=== PATIENT | male | born 1940 | race Caucasian/White ===

== ENCOUNTER 2016-08-28 20:49 | Inpatient (IN) | payer MEDICARE, MEDICAID ==
[~2016-08-28] VITALS: Ht 165.1 cm; Wt 53.5 kg
[2016-08-28] MEDS ORDERED: IV NS 0.9% 1,000 ML BAG IV ONE (21:00)
[2016-08-28] MEDS ORDERED: ACETAMINOPHEN ES 500 MG TABLET ONE (21:02)
[2016-08-28] MEDS ORDERED: IV SET PRIMARY 1 EA INFUS.SET MC ONE (21:02)
[2016-08-28] MEDS ORDERED: IV NS 0.9% 2,000 ML ONE (21:02)
[2016-08-28 21:15] LABS: BASOPHILS # (AUTO) 0.3 /CMM (0.0-0.2); DIFF TOTAL % 100 %; HEMATOCRIT 47 % (39-51); LYMPHOCYTES % (AUTO) 3.7 % (20.0-44.0); MEAN CORPUSCULAR HEMOGLOBIN 29 PG (26.0-33.0); MEAN CORPUSCULAR HGB CONC 34 g/dl (31.0-36.0); MEAN CORPUSCULAR VOLUME 86 fL (80-96); MONOCYTES # (AUTO) 1.6 /CMM (0.1-1.30); MONOCYTES % (AUTO) 5.9 % (2.0-12.0); NEUTROPHILS # (AUTO) 23.7 /CMM (1.8-8.9); NEUTROPHILS % (AUTO) 89.4 % (43.0-81.0); PLATELET COUNT (AUTO) 221 /CMM (150-450); RED BLOOD CELL COUNT(AUTO) 5.44 MIL/uL (4.5-6.0); WHITE BLOOD COUNT (AUTO) 26.6 K/uL (4.3-11.0)
[2016-08-28 21:27] LABS: ANION GAP 13 (5-14); CALCIUM, SERUM 8.9 mg/dL (8.5-10.1); CARBON DIOXIDE 26 mmol/L (21-32); CHLORIDE 99 mmol/L (98-107); CREATININE 0.9 mg/dL (0.6-1.3); GLUCOSE 113 mg/dL (74-106); POTASSIUM 4.1 mmol/L (3.5-5.1); SODIUM SERUM 134 mmol/L (136-145); UREA NITROGEN, BLOOD 19 mg/dL (7-18)
[2016-08-28] MEDS ORDERED: VANCOMYCIN 1 GM in IV D5W 250 ML IV ONE (21:30)
[2016-08-28] MEDS ORDERED: ACETAMINOPHEN ES 500 MG TABLET PO ONE (21:30)
[2016-08-28 21:31] LABS: INR 0.98 (0.87-1.13); PROTHROMBIN TIME 10.3 SECS (9.5-12.7)
[2016-08-28 21:35] LABS: TROPONIN I < 0.017 ng/mL (0.00-0.056)
[2016-08-28] MEDS ORDERED: VANCOMYCIN 1 GM VIAL ONE (21:37)
[2016-08-28] MEDS ORDERED: PIPERACILLIN /TAZOBACTAM 3.375 G VIAL IV ONE (21:37)
[2016-08-28] MEDS ORDERED: IV SET PRIMARY PUMP SET 1 EA INFUS.SET MC ONE (21:38)
[2016-08-28] MEDS ORDERED: IV D5W 50 ML IV ONE (21:38)
[2016-08-28] MEDS ORDERED: IV D5W 250 ML IV ONE (21:38)
[2016-08-28 21:39] LABS: ALANINE AMINOTRANSFERASE 49 U/L (12-78); ALBUMIN 2.8 g/dL (3.4-5.0); ASPARTATE AMINOTRANSFERASE 23 U/L (15-37); BILIRUBIN,DIRECT 0.3 mg/dL (0.0-0.2); BILIRUBIN,TOTAL 1.1 mg/dL (0.2-1.0); INDIRECT BILIRUBIN 0.8 mg/dL (0.0-1.1); TOTAL PROTEIN, SERUM 7.3 g/dL (6.4-8.2)
[2016-08-28] MEDS ORDERED: AMIO200T2 PO (22:03)
[2016-08-28] MEDS ORDERED: NA P133E RC (22:03)
[2016-08-28] MEDS ORDERED: TEMA15CA5 PO (22:03)
[2016-08-28] MEDS ORDERED: IPRA0.2S49 NEB (22:03)
[2016-08-28] MEDS ORDERED: HYDR-552 PO (22:03)
[2016-08-28] MEDS ORDERED: ALBU18HF2 INH (22:03)
[2016-08-28] MEDS ORDERED: DIGO125T PO (22:03)
[2016-08-28] MEDS ORDERED: MAGN400O4 PO (22:03)
[2016-08-28] MEDS ORDERED: FLUT1DIS3 INH (22:03)
[2016-08-28] MEDS ORDERED: CRAN450T3 PO (22:03)
[2016-08-28] MEDS ORDERED: BISA10SU61 RC (22:03)
[2016-08-28] MEDS ORDERED: DOCU-25 PO (22:03)
[2016-08-28] MEDS: PIPERACILLIN /TAZOBACTAM 3.375 G in IV D5W 50 ML IV ONE ×2 (22:09→22:25)
[2016-08-28 22:48] LABS: KETONES,URINE 2+ (NEGATIVE); LEUKOCYTE ESTERASE ,URINE NEGATIVE (NEGATIVE)
[2016-08-28 22:53] LABS: ADD UA MICROSCOPIC YES
[2016-08-28 22:59] LABS: ADD URINE CULTURE NO; MUCUS,URINE Few /LPF (None Seen); RBC,URINE 0-2 /HPF (0-2); WBC,URINE 0-2 /HPF (0-3)
[2016-08-29] VITALS (7 sets, daily range): BP systolic 97–109; BP diastolic 48–60
[2016-08-29] MEDS ORDERED: IV NS 0.9% 1,000 ML BAG IV SCH (01:30)
[2016-08-29] MEDS ORDERED: IV SET PRIMARY PUMP SET 1 EA INFUS.SET MC ONE ×2 (02:34→10:25)
[2016-08-29] MEDS ORDERED: IV NS 0.9% 1,000 ML ONE (02:34)
[2016-08-29 08:01] LABS: BASOPHILS % (AUTO) 0.2 % (0.0-2.0); DIFF TOTAL % 100 %; EOSINOPHILS # (AUTO) 0.1 /CMM (0.0-0.7); EOSINOPHILS % (AUTO) 0.3 % (0.0-6.0); HEMATOCRIT 42 % (39-51); HEMOGLOBIN 13.7 g/dL (13.5-17.5); LYMPHOCYTES # (AUTO) 0.5 /CMM (0.8-4.8); LYMPHOCYTES % (AUTO) 2.6 % (20.0-44.0); MEAN CORPUSCULAR HEMOGLOBIN 29 PG (26.0-33.0); MEAN CORPUSCULAR HGB CONC 33 g/dl (31.0-36.0); MEAN CORPUSCULAR VOLUME 88 fL (80-96); MONOCYTES # (AUTO) 1.3 /CMM (0.1-1.30); MONOCYTES % (AUTO) 6.5 % (2.0-12.0); NEUTROPHILS # (AUTO) 18.8 /CMM (1.8-8.9); NEUTROPHILS % (AUTO) 90.4 % (43.0-81.0); PLATELET COUNT (AUTO) 214 /CMM (150-450); RED BLOOD CELL COUNT(AUTO) 4.76 MIL/uL (4.5-6.0); WHITE BLOOD COUNT (AUTO) 20.8 K/uL (4.3-11.0)
[2016-08-29] MEDS ORDERED: PROC-11 PO (08:01)
[2016-08-29] MEDS ORDERED: DOCU250C75 PO (08:01)
[2016-08-29] MEDS ORDERED: FLUT1BLS IH (08:01)
[2016-08-29] MEDS ORDERED: MAGN400O6 PO (08:01)
[2016-08-29] MEDS ORDERED: HYDR-3326 PO (08:01)
[2016-08-29] MEDS ORDERED: ALBUTEROL FS 2.5 MG/0.5 ML VIAL.NEB NEB PRN (08:30)
[2016-08-29 08:33] LABS: CALCIUM, SERUM 8.4 mg/dL (8.5-10.1); CREATININE 0.8 mg/dL (0.6-1.3); POTASSIUM 3.9 mmol/L (3.5-5.1)
[2016-08-29] MEDS ORDERED: FEE PK DOSING 1 MIN EA MC ONE (08:35)
[2016-08-29] MEDS: PANTOPRAZOLE 40 MG TABLET.DR PO SCH (08:41)
[2016-08-29] MEDS: ENOXAPARIN SODIUM 40 MG/0.4 ML DISP.SYRIN SQ SCH (08:42)
[2016-08-29] MEDS ORDERED: MAGNESIUM HYDROXIDE 30 ML UDC PO PRN (09:30)
[2016-08-29] MEDS ORDERED: BISACODYL SUPP (10 MG) 10 MG/SUPP.RECT SUPP.RECT RC PRN (09:30)
[2016-08-29] MEDS ORDERED: PROCHLORPERAZINE MALEATE 10 MG TABLET PO PRN (09:30)
[2016-08-29] MEDS ORDERED: HYDROCODONE/APAP 5/325MG 1 EACH TABLET PO PRN (09:30)
[2016-08-29] MEDS ORDERED: NA PHOS,M-B/NA PHOS,DI-BA 1 EA ENEMA RC PRN (09:30)
[2016-08-29 09:44] LABS: BAND % (MANUAL) 3 % (0.0-5.0); LYMPHOCYTES % (MANUAL) 3 % (16-48)
[2016-08-29 09:45] LABS: PLATELET ESTIMATE ADEQUATE
[2016-08-29] MEDS ORDERED: SECONDARY IV SET 1 EA INFUS.SET MC ONE ×2 (10:26→11:47)
[2016-08-29] MEDS: IPRATROPIUM NEB FS 0.5 MG/2.5 ML AMPUL.NEB NEB SCH ×5 (10:27→20:18)
[2016-08-29] MEDS: ALBUTEROL FS 2.5 MG/0.5 ML VIAL.NEB NEB SCH ×5 (10:27→20:18)
[2016-08-29] MEDS: AMIODARONE HCL 200 MG TABLET PO SCH (10:31)
[2016-08-29] MEDS: DOCUSATE SODIUM 250 MG CAPSULE PO SCH ×2 (10:31→17:06)
[2016-08-29] MEDS: VANCOMYCIN 0.75 GM in IV D5W 250 ML IV SCH ×2 (10:32→23:09)
[2016-08-29] MEDS: IV NS 0.9% 1,000 ML IV PRN (10:33)
[2016-08-29] MEDS: ACETAMINOPHEN 325 MG TABLET PO PRN (11:27)
[2016-08-29] MEDS: PIPERACILLIN /TAZOBACTAM 3.375 G in IV D5W 50 ML IV SCH ×2 (11:54→17:06)
[2016-08-29] MEDS ORDERED: Z GUARD REMEDY 2 OZ OINT TP PRN (13:00)
[2016-08-29] MEDS: DIGOXIN 0.125 MG TABLET PO SCH (13:13)
[2016-08-29] MEDS: ACETYLCYSTEINE 10% SOLN 400 MG/4 ML VIAL NEB SCH (15:35)
[2016-08-29] MEDS ORDERED: Medication Not On Formulary EA (Cranberry Extract (Cranberry) 450 MG) PO SCH (17:00)
[2016-08-29] MEDS: TEMAZEPAM 15 MG CAPSULE PO SCH (23:08)
[2016-08-30] MEDS: ACETYLCYSTEINE 10% SOLN 400 MG/4 ML VIAL NEB SCH ×3 (00:23→23:30)
[2016-08-30] MEDS: IPRATROPIUM NEB FS 0.5 MG/2.5 ML AMPUL.NEB NEB PRN (00:31)
[2016-08-30] MEDS: PIPERACILLIN /TAZOBACTAM 3.375 G in IV D5W 50 ML IV SCH ×4 (00:44→17:43)
[2016-08-30] MEDS: IV NS 0.9% 1,000 ML IV PRN ×2 (01:43→13:37)
[2016-08-30 08:00] VITALS: BP 123/72
[2016-08-30] MEDS: PANTOPRAZOLE 40 MG TABLET.DR PO SCH (08:19)
[2016-08-30] MEDS: AMIODARONE HCL 200 MG TABLET PO SCH (08:20)
[2016-08-30] MEDS: DOCUSATE SODIUM 250 MG CAPSULE PO SCH ×2 (08:20→16:51)
[2016-08-30] MEDS: ENOXAPARIN SODIUM 40 MG/0.4 ML DISP.SYRIN SQ SCH (08:21)
[2016-08-30] MEDS: IPRATROPIUM NEB FS 0.5 MG/2.5 ML AMPUL.NEB NEB SCH ×3 (08:32→19:25)
[2016-08-30] MEDS: ALBUTEROL FS 2.5 MG/0.5 ML VIAL.NEB NEB SCH (08:32)
[2016-08-30] MEDS ORDERED: HYDROCODONE/APAP 5/325MG 1 EACH TABLET PO SCH (09:00)
[2016-08-30] MEDS: VANCOMYCIN 0.75 GM in IV D5W 250 ML IV SCH ×2 (12:22→23:08)
[2016-08-30] MEDS: DIGOXIN 0.125 MG TABLET PO SCH (13:38)
[2016-08-30] MEDS: ALBUTEROL FS 2.5 MG/3 ML VIAL.NEB NEB SCH ×2 (13:58→19:25)
[2016-08-30 16:00] VITALS: BP 131/64
[2016-08-30] MEDS ORDERED: IOHEXOL-350 100 ML VIAL IV ONE (16:55)
[2016-08-30] MEDS ORDERED: IV NS 0.9% 250 ML IV ONE (16:55)
[2016-08-30] MEDS ORDERED: CT SWABBABLE VALVE TRANS SET 1 EA INFUS.SET MC ONE (16:55)
[2016-08-30 18:00] VITALS: BP 131/64
[2016-08-30 20:00] VITALS: BP 101/58
[2016-08-30] MEDS: ACETAMINOPHEN 325 MG TABLET PO PRN (22:05)
[2016-08-30] MEDS: TEMAZEPAM 15 MG CAPSULE PO SCH (23:08)
[2016-08-31] MEDS: PIPERACILLIN /TAZOBACTAM 3.375 G in IV D5W 50 ML IV SCH ×4 (00:17→18:46)
[2016-08-31] MEDS: IPRATROPIUM NEB FS 0.5 MG/2.5 ML AMPUL.NEB NEB SCH ×3 (07:17→19:56)
[2016-08-31] MEDS: ACETYLCYSTEINE 10% SOLN 400 MG/4 ML VIAL NEB SCH ×2 (07:17→14:30)
[2016-08-31] MEDS: ALBUTEROL FS 2.5 MG/3 ML VIAL.NEB NEB SCH ×3 (07:17→19:56)
[2016-08-31 07:20] LABS: BASOPHILS % (AUTO) 0.1 % (0.0-2.0); DIFF TOTAL % 100 %; EOSINOPHILS # (AUTO) 0.1 /CMM (0.0-0.7); EOSINOPHILS % (AUTO) 0.7 % (0.0-6.0); HEMATOCRIT 38 % (39-51); HEMOGLOBIN 12.5 g/dL (13.5-17.5); LYMPHOCYTES # (AUTO) 1.2 /CMM (0.8-4.8); LYMPHOCYTES % (AUTO) 6.7 % (20.0-44.0); MEAN CORPUSCULAR HEMOGLOBIN 29 PG (26.0-33.0); MEAN CORPUSCULAR HGB CONC 33 g/dl (31.0-36.0); MEAN CORPUSCULAR VOLUME 87 fL (80-96); MONOCYTES # (AUTO) 1.1 /CMM (0.1-1.30); MONOCYTES % (AUTO) 6.6 % (2.0-12.0); NEUTROPHILS % (AUTO) 85.9 % (43.0-81.0); PLATELET COUNT (AUTO) 224 /CMM (150-450); RED BLOOD CELL COUNT(AUTO) 4.36 MIL/uL (4.5-6.0); WHITE BLOOD COUNT (AUTO) 17.4 K/uL (4.3-11.0)
[2016-08-31 07:31] LABS: CALCIUM, SERUM 8.3 mg/dL (8.5-10.1); CREATININE 0.9 mg/dL (0.6-1.3)
[2016-08-31 07:39] LABS: POTASSIUM 2.4 mmol/L (3.5-5.1)
[2016-08-31 08:00] VITALS: BP 93/58
[2016-08-31] MEDS: DOCUSATE SODIUM 250 MG CAPSULE PO SCH ×2 (08:57→16:36)
[2016-08-31] MEDS: PANTOPRAZOLE 40 MG TABLET.DR PO SCH (08:58)
[2016-08-31] MEDS: AMIODARONE HCL 200 MG TABLET PO SCH (08:58)
[2016-08-31] MEDS: POTASSIUM CHLORIDE 20 MEQ TAB.PRT.SR PO SCH ×5 (08:59→13:11)
[2016-08-31] MEDS: ENOXAPARIN SODIUM 40 MG/0.4 ML DISP.SYRIN SQ SCH (09:00)
[2016-08-31] MEDS ORDERED: POTASSIUM CHLORIDE 20 MEQ TAB.PRT.SR PO ONE (10:00)
[2016-08-31] MEDS: VANCOMYCIN 0.75 GM in IV D5W 250 ML IV SCH (11:41)
[2016-08-31] MEDS: ACETAMINOPHEN 325 MG TABLET PO PRN (11:56)
[2016-08-31] MEDS: DIGOXIN 0.125 MG TABLET PO SCH (13:09)
[2016-08-31] MEDS: predniSONE 20 MG TABLET PO SCH (15:32)
[2016-08-31 16:00] VITALS: BP 80/50
[2016-08-31] MEDS: IV NS 0.9% 1,000 ML IV PRN (16:41)
[2016-08-31] MEDS: LACTOBACILLUS RHAMNOSUS GG 1 EACH CAP.SPRINK PO SCH (16:49)
[2016-08-31] MEDS: GUAIFENESIN 300 MG/15 ML UDC PO PRN (16:57)
[2016-08-31 18:50] VITALS: BP 80/50
[2016-08-31] MEDS ORDERED: IV NS 0.9% 250 ML IV ONE (19:30)
[2016-08-31 20:00] VITALS: BP 91/50
[2016-09-01] MEDS: TEMAZEPAM 15 MG CAPSULE PO SCH ×2 (00:18→22:15)
[2016-09-01] MEDS: VANCOMYCIN 0.75 GM in IV D5W 250 ML IV SCH ×3 (00:19→23:00)
[2016-09-01] MEDS: PIPERACILLIN /TAZOBACTAM 3.375 G in IV D5W 50 ML IV SCH ×4 (01:28→17:45)
[2016-09-01] MEDS: IPRATROPIUM NEB FS 0.5 MG/2.5 ML AMPUL.NEB NEB PRN (01:29)
[2016-09-01] MEDS: ALBUTEROL FS 2.5 MG/3 ML VIAL.NEB NEB PRN (01:29)
[2016-09-01] MEDS: ACETYLCYSTEINE 10% SOLN 400 MG/4 ML VIAL NEB SCH ×4 (01:29→23:30)
[2016-09-01 08:00] VITALS: BP 138/68
[2016-09-01 08:22] LABS: DIFF TOTAL % 100 %; HEMATOCRIT 35 % (39-51); HEMOGLOBIN 11.6 g/dL (13.5-17.5); LYMPHOCYTES # (AUTO) 0.8 /CMM (0.8-4.8); LYMPHOCYTES % (AUTO) 6.3 % (20.0-44.0); MEAN CORPUSCULAR HEMOGLOBIN 29 PG (26.0-33.0); MEAN CORPUSCULAR HGB CONC 33 g/dl (31.0-36.0); MEAN CORPUSCULAR VOLUME 87 fL (80-96); MONOCYTES # (AUTO) 0.6 /CMM (0.1-1.30); MONOCYTES % (AUTO) 4.8 % (2.0-12.0); NEUTROPHILS # (AUTO) 10.7 /CMM (1.8-8.9); NEUTROPHILS % (AUTO) 88.9 % (43.0-81.0); PLATELET COUNT (AUTO) 245 /CMM (150-450); RED BLOOD CELL COUNT(AUTO) 4.01 MIL/uL (4.5-6.0)
[2016-09-01 08:37] LABS: ALBUMIN 1.6 g/dL (3.4-5.0); BILIRUBIN,TOTAL 0.4 mg/dL (0.2-1.0); PHOSPHORUS 2.5 mg/dL (2.5-4.9); TOTAL PROTEIN, SERUM 5.5 g/dL (6.4-8.2)
[2016-09-01] MEDS: IPRATROPIUM NEB FS 0.5 MG/2.5 ML AMPUL.NEB NEB SCH ×3 (08:44→20:09)
[2016-09-01] MEDS: ALBUTEROL FS 2.5 MG/3 ML VIAL.NEB NEB SCH ×3 (08:45→20:10)
[2016-09-01] MEDS ORDERED: predniSONE 20 MG TABLET PO SCH (09:00)
[2016-09-01] MEDS: DOCUSATE SODIUM 250 MG CAPSULE PO SCH ×2 (09:00→17:00)
[2016-09-01] MEDS ORDERED: POTASSIUM CHLORIDE 20 MEQ TAB.PRT.SR PO ONE (10:00)
[2016-09-01] MEDS: LACTOBACILLUS RHAMNOSUS GG 1 EACH CAP.SPRINK PO SCH ×2 (10:48→17:01)
[2016-09-01] MEDS: PANTOPRAZOLE 40 MG TABLET.DR PO SCH (10:48)
[2016-09-01] MEDS: GUAIFENESIN 300 MG/15 ML UDC PO PRN (10:48)
[2016-09-01] MEDS: AMIODARONE HCL 200 MG TABLET PO SCH (10:49)
[2016-09-01] MEDS: predniSONE 20 MG TABLET PO SCH (10:50)
[2016-09-01] MEDS: ENOXAPARIN SODIUM 40 MG/0.4 ML DISP.SYRIN SQ SCH (10:50)
[2016-09-01] MEDS ORDERED: IV SET PRIMARY PUMP SET 1 EA INFUS.SET MC ONE (11:09)
[2016-09-01] MEDS: IV NS 0.9% 1,000 ML IV PRN (11:31)
[2016-09-01] MEDS: DIGOXIN 0.125 MG TABLET PO SCH (13:08)
[2016-09-01 16:00] VITALS: BP 92/45
[2016-09-01 20:00] VITALS: BP 111/60
[2016-09-01] MEDS ORDERED: MAG HYDROX/AL HYDROX/SIMETH 30 ML UDC ONE (22:07)
[2016-09-01] MEDS: MAG HYDROX/AL HYDROX/SIMETH 30 ML UDC PO PRN (22:15)
[2016-09-01] MEDS: ACETAMINOPHEN 325 MG TABLET PO PRN (23:27)
[2016-09-02] MEDS: PIPERACILLIN /TAZOBACTAM 3.375 G in IV D5W 50 ML IV SCH ×4 (00:03→17:10)
[2016-09-02] MEDS: IV NS 0.9% 1,000 ML IV PRN (05:25)
[2016-09-02 07:59] LABS: BASOPHILS # (AUTO) 0.1 /CMM (0.0-0.2); BASOPHILS % (AUTO) 0.9 % (0.0-2.0); DIFF TOTAL % 100 %; HEMATOCRIT 36 % (39-51); HEMOGLOBIN 11.7 g/dL (13.5-17.5); LYMPHOCYTES # (AUTO) 1.1 /CMM (0.8-4.8); MEAN CORPUSCULAR HEMOGLOBIN 29 PG (26.0-33.0); MEAN CORPUSCULAR HGB CONC 33 g/dl (31.0-36.0); MEAN CORPUSCULAR VOLUME 88 fL (80-96); MONOCYTES # (AUTO) 0.6 /CMM (0.1-1.30); NEUTROPHILS % (AUTO) 88.1 % (43.0-81.0); PLATELET COUNT (AUTO) 204 /CMM (150-450); RED BLOOD CELL COUNT(AUTO) 4.06 MIL/uL (4.5-6.0); WHITE BLOOD COUNT (AUTO) 15.9 K/uL (4.3-11.0)
[2016-09-02 08:00] VITALS: BP 119/59
[2016-09-02] MEDS: IPRATROPIUM NEB FS 0.5 MG/2.5 ML AMPUL.NEB NEB SCH ×3 (08:08→19:30)
[2016-09-02] MEDS: ACETYLCYSTEINE 10% SOLN 400 MG/4 ML VIAL NEB SCH ×3 (08:08→23:42)
[2016-09-02] MEDS: ALBUTEROL FS 2.5 MG/3 ML VIAL.NEB NEB SCH ×3 (08:08→19:30)
[2016-09-02] MEDS: DOCUSATE SODIUM 250 MG CAPSULE PO SCH ×2 (08:37→17:00)
[2016-09-02] MEDS: PANTOPRAZOLE 40 MG TABLET.DR PO SCH (08:38)
[2016-09-02] MEDS: predniSONE 20 MG TABLET PO SCH (08:38)
[2016-09-02] MEDS: LACTOBACILLUS RHAMNOSUS GG 1 EACH CAP.SPRINK PO SCH ×2 (08:38→17:05)
[2016-09-02] MEDS: AMIODARONE HCL 200 MG TABLET PO SCH (08:38)
[2016-09-02] MEDS: ENOXAPARIN SODIUM 40 MG/0.4 ML DISP.SYRIN SQ SCH (08:39)
[2016-09-02 08:42] LABS: BAND % (MANUAL) 3 % (0.0-5.0); LYMPHOCYTES % (MANUAL) 12 % (16-48); METAMYELOCYTES % 1 % (0-0); PLATELET ESTIMATE ADEQUATE
[2016-09-02 09:41] LABS: CALCIUM, SERUM 8.6 mg/dL (8.5-10.1); CREATININE 1.1 mg/dL (0.6-1.3); PHOSPHORUS 2.4 mg/dL (2.5-4.9); POTASSIUM 3.3 mmol/L (3.5-5.1)
[2016-09-02] MEDS: VANCOMYCIN 500 MG in IV D5W 100 ML IV SCH (12:11)
[2016-09-02] MEDS ORDERED: SECONDARY IV SET 1 EA INFUS.SET MC ONE (12:11)
[2016-09-02] MEDS: DIGOXIN 0.125 MG TABLET PO SCH (12:55)
[2016-09-02 16:00] VITALS: BP 114/65
[2016-09-02] MEDS ORDERED: K PHOS NEUTRAL 250 MG TABLET PO ONE (16:00)
[2016-09-02 20:00] VITALS: BP 141/74
[2016-09-02] MEDS: TEMAZEPAM 15 MG CAPSULE PO SCH (23:08)
[2016-09-02] MEDS: IPRATROPIUM NEB FS 0.5 MG/2.5 ML AMPUL.NEB NEB PRN (23:42)
[2016-09-02] MEDS: ALBUTEROL FS 2.5 MG/3 ML VIAL.NEB NEB PRN (23:42)
[2016-09-03] MEDS: VANCOMYCIN 500 MG in IV D5W 100 ML IV SCH ×2 (00:05→11:48)
[2016-09-03] MEDS: PIPERACILLIN /TAZOBACTAM 3.375 G in IV D5W 50 ML IV SCH ×4 (00:31→17:13)
[2016-09-03 03:20] VITALS: BP 141/74
[2016-09-03] MEDS: IV NS 0.9% 1,000 ML IV PRN (05:05)
[2016-09-03 07:44] LABS: CALCIUM, SERUM 7.1 mg/dL (8.5-10.1); CREATININE 0.9 mg/dL (0.6-1.3); PHOSPHORUS 3.5 mg/dL (2.5-4.9)
[2016-09-03 07:49] LABS: POTASSIUM 2.8 mmol/L (3.5-5.1)
[2016-09-03 08:00] VITALS: BP 104/62
[2016-09-03] MEDS: ALBUTEROL FS 2.5 MG/3 ML VIAL.NEB NEB SCH ×3 (08:16→19:46)
[2016-09-03] MEDS: ACETYLCYSTEINE 10% SOLN 400 MG/4 ML VIAL NEB SCH ×3 (08:17→23:40)
[2016-09-03] MEDS: IPRATROPIUM NEB FS 0.5 MG/2.5 ML AMPUL.NEB NEB SCH ×3 (08:17→19:46)
[2016-09-03] MEDS: AMIODARONE HCL 200 MG TABLET PO SCH (09:00)
[2016-09-03] MEDS: predniSONE 20 MG TABLET PO SCH (09:09)
[2016-09-03] MEDS: DOCUSATE SODIUM 250 MG CAPSULE PO SCH ×2 (09:09→17:13)
[2016-09-03] MEDS: PANTOPRAZOLE 40 MG TABLET.DR PO SCH (09:09)
[2016-09-03] MEDS: LACTOBACILLUS RHAMNOSUS GG 1 EACH CAP.SPRINK PO SCH ×2 (09:10→17:13)
[2016-09-03] MEDS: ENOXAPARIN SODIUM 40 MG/0.4 ML DISP.SYRIN SQ SCH (09:12)
[2016-09-03] MEDS ORDERED: POTASSIUM CHLORIDE 20 MEQ TAB.PRT.SR PO ONE (11:30)
[2016-09-03] MEDS ORDERED: SECONDARY IV SET 1 EA INFUS.SET MC ONE (11:41)
[2016-09-03] MEDS: DIGOXIN 0.125 MG TABLET PO SCH (13:02)
[2016-09-03 16:32] VITALS: BP 109/67
[2016-09-03] MEDS ORDERED: IV NS 0.9% 1,000 ML IV PRN ×2 (17:51→18:03)
[2016-09-03] MEDS ORDERED: IV D5/ 0.9% NACL 1,000 ML IV PRN (18:00)
[2016-09-03 20:00] VITALS: BP 112/67
[2016-09-03] MEDS: TEMAZEPAM 15 MG CAPSULE PO SCH (21:14)
[2016-09-04] MEDS: IV D5/ 0.9% NACL 1,000 ML IV PRN ×2 (00:57→22:00)
[2016-09-04] MEDS: methylPREDNISolone SOD SUCC 125 MG/2ML VIAL IV SCH ×3 (00:57→11:53)
[2016-09-04] MEDS: VANCOMYCIN 500 MG in IV D5W 100 ML IV SCH ×4 (00:57→23:09)
[2016-09-04] MEDS: PIPERACILLIN /TAZOBACTAM 3.375 G in IV D5W 50 ML IV SCH ×4 (01:51→17:29)
[2016-09-04] MEDS: PANTOPRAZOLE 40 MG TABLET.DR PO SCH (07:30)
[2016-09-04 07:52] LABS: DIFF TOTAL % 100 %; HEMATOCRIT 37 % (39-51); HEMOGLOBIN 12.2 g/dL (13.5-17.5); LYMPHOCYTES # (AUTO) 0.7 /CMM (0.8-4.8); LYMPHOCYTES % (AUTO) 4.1 % (20.0-44.0); MEAN CORPUSCULAR HEMOGLOBIN 29 PG (26.0-33.0); MEAN CORPUSCULAR HGB CONC 33 g/dl (31.0-36.0); MEAN CORPUSCULAR VOLUME 87 fL (80-96); MONOCYTES % (AUTO) 0.2 % (2.0-12.0); NEUTROPHILS # (AUTO) 16.4 /CMM (1.8-8.9); NEUTROPHILS % (AUTO) 95.7 % (43.0-81.0); PLATELET COUNT (AUTO) 349 /CMM (150-450); WHITE BLOOD COUNT (AUTO) 17.1 K/uL (4.3-11.0)
[2016-09-04 08:00] VITALS: BP 157/73
[2016-09-04 08:01] LABS: CALCIUM, SERUM 8.2 mg/dL (8.5-10.1); POTASSIUM 3.1 mmol/L (3.5-5.1)
[2016-09-04 08:03] LABS: INR 1.04 (0.87-1.13); PROTHROMBIN TIME 11.2 SECS (9.5-12.7)
[2016-09-04] MEDS: LACTOBACILLUS RHAMNOSUS GG 1 EACH CAP.SPRINK PO SCH ×2 (08:55→17:29)
[2016-09-04] MEDS: ENOXAPARIN SODIUM 40 MG/0.4 ML DISP.SYRIN SQ SCH (08:55)
[2016-09-04] MEDS: DOCUSATE SODIUM 250 MG CAPSULE PO SCH ×2 (08:55→17:00)
[2016-09-04] MEDS: IPRATROPIUM NEB FS 0.5 MG/2.5 ML AMPUL.NEB NEB SCH ×3 (09:22→19:39)
[2016-09-04] MEDS: AMIODARONE HCL 200 MG TABLET PO SCH (09:23)
[2016-09-04] MEDS: ALBUTEROL FS 2.5 MG/3 ML VIAL.NEB NEB SCH ×3 (09:24→19:39)
[2016-09-04] MEDS: ACETYLCYSTEINE 10% SOLN 400 MG/4 ML VIAL NEB SCH ×3 (09:26→23:32)
[2016-09-04] MEDS: MAG HYDROX/AL HYDROX/SIMETH 30 ML UDC PO PRN (10:35)
[2016-09-04] MEDS ORDERED: IV SET PRIMARY PUMP SET 1 EA INFUS.SET MC ONE (11:28)
[2016-09-04] MEDS: POTASSIUM CL. PREMIX PERIPHER. 50 ML IV SCH ×4 (11:54→17:09)
[2016-09-04] MEDS ORDERED: ROCURONIUM BROMIDE 50 MG/5 ML ONE (12:50)
[2016-09-04] MEDS: DIGOXIN 0.125 MG TABLET PO SCH (13:00)
[2016-09-04] MEDS ORDERED: ALBUTEROL FS 2.5 MG/3 ML VIAL.NEB ONE (13:28)
[2016-09-04] MEDS ORDERED: ANESTHESIA TRAY IN PYXIS 1 EA TRAY MC ONE (13:54)
[2016-09-04 16:00] VITALS: BP 92/51
[2016-09-04 20:00] VITALS: BP 113/64
[2016-09-04 20:11] VITALS: BP 113/64
[2016-09-04] MEDS: TEMAZEPAM 15 MG CAPSULE PO SCH (21:00)
[2016-09-05] MEDS: PIPERACILLIN /TAZOBACTAM 3.375 G in IV D5W 50 ML IV SCH ×4 (00:19→19:03)
[2016-09-05] MEDS: ACETYLCYSTEINE 10% SOLN 400 MG/4 ML VIAL NEB SCH ×3 (07:35→23:22)
[2016-09-05] MEDS: IPRATROPIUM NEB FS 0.5 MG/2.5 ML AMPUL.NEB NEB SCH ×4 (07:35→19:47)
[2016-09-05] MEDS: ALBUTEROL FS 2.5 MG/3 ML VIAL.NEB NEB SCH ×4 (07:35→19:47)
[2016-09-05 08:00] VITALS: BP 131/71
[2016-09-05] MEDS: DOCUSATE SODIUM 250 MG CAPSULE PO SCH ×2 (09:48→17:34)
[2016-09-05] MEDS: LACTOBACILLUS RHAMNOSUS GG 1 EACH CAP.SPRINK PO SCH ×2 (09:48→17:33)
[2016-09-05] MEDS: PANTOPRAZOLE 40 MG TABLET.DR PO SCH (09:48)
[2016-09-05] MEDS: AMIODARONE HCL 200 MG TABLET PO SCH (09:49)
[2016-09-05] MEDS ORDERED: VANCOMYCIN 1 GM in IV D5W 250 ML IV SCH (10:30)
[2016-09-05] MEDS: DIGOXIN 0.125 MG TABLET PO SCH (13:41)
[2016-09-05 15:56] LABS: CALCIUM, SERUM 7.9 mg/dL (8.5-10.1); CREATININE 0.9 mg/dL (0.6-1.3); POTASSIUM 3.4 mmol/L (3.5-5.1)
[2016-09-05] MEDS: IV D5/ 0.9% NACL 1,000 ML IV PRN (15:57)
[2016-09-05 16:00] VITALS: BP 110/56
[2016-09-05] MEDS ORDERED: VANCOMYCIN 500 MG in IV D5W 100 ML IV SCH (17:00)
[2016-09-05] MEDS ORDERED: SECONDARY IV SET 1 EA INFUS.SET MC ONE (17:37)
[2016-09-05 19:00] VITALS: BP 119/71
[2016-09-05 20:35] VITALS: BP 119/71
[2016-09-05] MEDS ORDERED: ENOXAPARIN SODIUM 40 MG/0.4 ML DISP.SYRIN SQ SCH (21:00)
[2016-09-05] MEDS: TEMAZEPAM 15 MG CAPSULE PO SCH (21:08)
[2016-09-06] MEDS: PIPERACILLIN /TAZOBACTAM 3.375 G in IV D5W 50 ML IV SCH ×3 (00:22→11:02)
[2016-09-06 07:51] LABS: DIFF TOTAL % 100 %; EOSINOPHILS # (AUTO) 0.3 /CMM (0.0-0.7); EOSINOPHILS % (AUTO) 1.2 % (0.0-6.0); HEMATOCRIT 39 % (39-51); HEMOGLOBIN 12.6 g/dL (13.5-17.5); LYMPHOCYTES # (AUTO) 1.6 /CMM (0.8-4.8); LYMPHOCYTES % (AUTO) 7.1 % (20.0-44.0); MEAN CORPUSCULAR HEMOGLOBIN 29 PG (26.0-33.0); MEAN CORPUSCULAR HGB CONC 33 g/dl (31.0-36.0); MEAN CORPUSCULAR VOLUME 89 fL (80-96); MONOCYTES # (AUTO) 0.1 /CMM (0.1-1.30); MONOCYTES % (AUTO) 0.3 % (2.0-12.0); NEUTROPHILS # (AUTO) 21.2 /CMM (1.8-8.9); NEUTROPHILS % (AUTO) 91.4 % (43.0-81.0); PLATELET COUNT (AUTO) 393 /CMM (150-450); RED BLOOD CELL COUNT(AUTO) 4.35 MIL/uL (4.5-6.0); WHITE BLOOD COUNT (AUTO) 23.2 K/uL (4.3-11.0)
[2016-09-06 08:00] VITALS: BP 110/68
[2016-09-06] MEDS: ALBUTEROL FS 2.5 MG/3 ML VIAL.NEB NEB SCH (08:00)
[2016-09-06] MEDS: ACETYLCYSTEINE 10% SOLN 400 MG/4 ML VIAL NEB SCH (08:00)
[2016-09-06 08:01] LABS: CALCIUM, SERUM 7.8 mg/dL (8.5-10.1); POTASSIUM 3.4 mmol/L (3.5-5.1)
[2016-09-06] MEDS: IPRATROPIUM NEB FS 0.5 MG/2.5 ML AMPUL.NEB NEB SCH (08:01)
[2016-09-06] MEDS: LACTOBACILLUS RHAMNOSUS GG 1 EACH CAP.SPRINK PO SCH (08:20)
[2016-09-06] MEDS: DOCUSATE SODIUM 250 MG CAPSULE PO SCH (08:20)
[2016-09-06] MEDS: PANTOPRAZOLE 40 MG TABLET.DR PO SCH (08:20)
[2016-09-06 08:23] VITALS: BP 109/68
[2016-09-06] MEDS: AMIODARONE HCL 200 MG TABLET PO SCH (08:23)
[2016-09-06] MEDS: IV D5/ 0.9% NACL 1,000 ML IV PRN (08:55)
[2016-09-06] MEDS ORDERED: VANCOMYCIN 0.75 GM in IV D5W 250 ML IV SCH (11:00)
[2016-09-06] MEDS ORDERED: POTASSIUM CHLORIDE 20 MEQ TAB.PRT.SR PO SCH (12:00)
[2016-09-06] MEDS: DIGOXIN 0.125 MG TABLET PO SCH (12:11)
== END 2016-09-06 14:25 | DRG 871 ==
LOC: ER 20:51 → TELE 22:36 → MED 08-29 10:43
PROVIDERS: ADMIT Legal Medicine; ATTEND Legal Medicine
PROC: 05H533Z Insertion of Infusion Device into Right Subclavian Vein, Percutaneous Approach (ICD-10-PCS; principal; 2016-08-30)
PROC: 0BJ08ZZ Inspection of Tracheobronchial Tree, Via Natural or Artificial Opening Endoscopic (ICD-10-PCS; 2016-09-04)
DX: A41.9 Sepsis, unspecified organism (principal); E43 Unspecified severe protein-calorie malnutrition; G93.41 Metabolic encephalopathy; J18.9 Pneumonia, unspecified organism; J96.21 Acute and chronic respiratory failure with hypoxia; J98.11 Atelectasis; J45.901 Unspecified asthma with (acute) exacerbation; J44.1 Chronic obstructive pulmonary disease with (acute) exacerbation; J44.0 Chronic obstructive pulmonary disease with (acute) lower respiratory infection; I69.354 Hemiplegia and hemiparesis following cerebral infarction affecting left non-dominant side; E11.22 Type 2 diabetes mellitus with diabetic chronic kidney disease; I12.9 Hypertensive chronic kidney disease with stage 1 through stage 4 chronic kidney disease, or unspecified chronic kidney disease; I48.91 Unspecified atrial fibrillation; N18.9 Chronic kidney disease, unspecified; Z86.73 Personal history of transient ischemic attack (TIA), and cerebral infarction without residual deficits; J44.9 Chronic obstructive pulmonary disease, unspecified; I48.2 Chronic atrial fibrillation; Z93.0 Tracheostomy status; E78.5 Hyperlipidemia, unspecified; E87.6 Hypokalemia; M41.9 Scoliosis, unspecified; M47.812 Spondylosis without myelopathy or radiculopathy, cervical region; M81.0 Age-related osteoporosis without current pathological fracture; Z87.891 Personal history of nicotine dependence
CPT/HCPCS: 36415; 70450-TC; 71010-TC; 80048-TC; 80053-TC; 80076-TC; 80162-TC; 80202-TC; 81000-TC; 82962-TC; 83605-TC; 83735-TC; 84100-TC; 84484-TC; 85025-TC; 85610-TC; 85730-TC; 87040-TC; 87070-TC; 87081-TC; 87400; 88305-TC; 88312-TC; 93307-TC; 94668-TC; 94799-TC; A4606; A6402; A6403; J1650; J2543; J2930; J3370; J3480; J7030; J7042; J7050; J7060; Q0164; Q9967; Z7610

== ENCOUNTER 2016-12-14 08:31 | Inpatient (IN) | payer MEDICARE, MEDICAID ==
[~2016-12-14] VITALS: Ht 162.6 cm; Wt 44.5 kg
[2016-12-14] VITALS: BP 94/55
[~2016-12-14 08:31] MED LIST: ALBU18HF2 INH; AMIO200T2 PO; BISA10SU61 RC; CRAN450T3 PO; DIGO125T PO; DOCU250C75 PO; FLUT1BLS IH; HYDR-3326 PO; HYDR-552 PO; IPRA0.2S49 NEB; MAGN400O6 PO; NA P133E RC; PROC-11 PO; TEMA15CA5 PO
--- NOTE | 2016-12-14 08:39 | NUR ---
KIARRA FROM [facility] DUE TO ALTERED MENTAL STATUS, PATIENT ARRIVED AWAKE, HOWEVER PATIENT APPEARS WEAK AND IN MILD DISTRESS. PATIENT IS ABLE TO FOLLOW SOMPLE COMMANDS,. DENIES PAIN OR DISCOMFORT. NO SOB NOTED,. SKIN IS WARM TO TOUCH AND NON DIAPHORETIC, AFEBRILE. VSS. GOWNED PT AND PLACED ON TELE MONITOR.
[2016-12-14] MEDS ORDERED: ALBU2.5V13 IH (08:52)
[2016-12-14] MEDS ORDERED: AMIN30LI4 PO (08:52)
[2016-12-14] MEDS ORDERED: PANT20TA2 PO (08:52)
[2016-12-14] MEDS ORDERED: IPRA0.2S9 IH (08:52)
[2016-12-14] MEDS ORDERED: PYRI100T6 PO (08:52)
[2016-12-14] MEDS ORDERED: TRAM50TA2 PO (08:52)
[2016-12-14] MEDS ORDERED: ACET-868 PO (08:52)
--- NOTE | 2016-12-14 08:53 | NUR ---
josef mcgee from [facility] for altered mental status upon finding patient in the morning, patient has low b/p, no resipratory distress, patient is responsive to verbally responsive, non verbal, patient denies chest pain, placed on monitor, md and rt at bedside upon arrival, no other medical complaints noted
--- NOTE | 2016-12-14 08:56 | NUR ---
URINE SAMPLE SENT TO LAB
--- NOTE | 2016-12-14 09:04 | NUR ---
pt to ct
[2016-12-14 09:12] LABS: APPEARANCE,URINE SL CLOUDY (CLEAR); BILIRUBIN,URINE NEGATIVE (NEGATIVE); BLOOD, URINE TRACE Ery/uL (NEGATIVE); COLOR,URINE YELLOW (YELLOW); KETONES,URINE NEGATIVE (NEGATIVE); LEUKOCYTE ESTERASE ,URINE NEGATIVE (NEGATIVE); NITRITE, URINE NEGATIVE (NEGATIVE); PROTEIN,URINE 2+ mg/dl (NEGATIVE); UGLUCOSE NEGATIVE (NEGATIVE); UROBILINOGEN,URINE 0.2 EU/dL (0.2)
[2016-12-14 09:14] LABS: BASOPHILS % (AUTO) 0.1 % (0.0-2.0); EOSINOPHILS # (AUTO) 0.5 /CMM (0.0-0.7); EOSINOPHILS % (AUTO) 2.7 % (0.0-6.0); HEMATOCRIT 44 % (39-51); HEMOGLOBIN 14.4 g/dL (13.5-17.5); LYMPHOCYTES # (AUTO) 1.2 /CMM (0.8-4.8); LYMPHOCYTES % (AUTO) 5.8 % (20.0-44.0); MEAN CORPUSCULAR HEMOGLOBIN 28 PG (26.0-33.0); MEAN CORPUSCULAR HGB CONC 33 g/dl (31.0-36.0); MEAN CORPUSCULAR VOLUME 86 fL (80-96); MONOCYTES # (AUTO) 0.9 /CMM (0.1-1.30); MONOCYTES % (AUTO) 4.2 % (2.0-12.0); NEUTROPHILS # (AUTO) 17.9 /CMM (1.8-8.9); NEUTROPHILS % (AUTO) 87.2 % (43.0-81.0); PLATELET COUNT (AUTO) 262 /CMM (150-450); RDW COEFFICIENT OF VARIATION 14.5 (11.5-15.0); RED BLOOD CELL COUNT(AUTO) 5.13 MIL/uL (4.5-6.0); WHITE BLOOD COUNT (AUTO) 20.5 K/uL (4.3-11.0)
[2016-12-14 09:22] LABS: SERUM AMMONIA 34 umol/L (11-32)
[2016-12-14 09:23] LABS: BACTERIA,URINE Rare /HPF (None Seen); SQUAMOUS EPITHELIAL CELL,UR Few /HPF (None Seen); WBC,URINE 0-2 /HPF (0-3)
[2016-12-14 09:24] LABS: CALCIUM, SERUM 8.7 mg/dL (8.5-10.1); CARBON DIOXIDE 29 mmol/L (21-32); CHLORIDE 103 mmol/L (98-107); CREATININE 0.9 mg/dL (0.6-1.3); GLUCOSE 163 mg/dL (74-106); POTASSIUM 4.5 mmol/L (3.5-5.1); SODIUM SERUM 138 mmol/L (136-145); UREA NITROGEN, BLOOD 17 mg/dL (7-18)
[2016-12-14 09:27] LABS: ALANINE AMINOTRANSFERASE 115 U/L (12-78); ALBUMIN 2.8 g/dL (3.4-5.0); ALKALINE PHOSPHATASE 120 U/L (46-116); ASPARTATE AMINOTRANSFERASE 164 U/L (15-37); BILIRUBIN,DIRECT 0.1 mg/dL (0.0-0.2); BILIRUBIN,TOTAL 0.5 mg/dL (0.2-1.0); TOTAL PROTEIN, SERUM 7.3 g/dL (6.4-8.2)
[2016-12-14 09:29] LABS: INR 1.05 (0.87-1.13); PROTHROMBIN TIME 11.3 SECS (9.5-12.7)
[2016-12-14 09:30] LABS: ACETAMINOPHEN 0 ug/ml (10-30)
[2016-12-14 09:59] LABS: THYROID STIMULATING HORMONE 1.748 uIU/mL (0.358-3.74)
[2016-12-14] MEDS ORDERED: VANCOMYCIN 1 GM in IV D5W 250 ML IV ONE (10:00)
[2016-12-14] MEDS ORDERED: MEROPENEM 1 G in IV NS 0.9% 100 ML IV ONE (10:00)
--- NOTE | 2016-12-14 10:03 | NUR ---
TELE/RN REPORT FROM ER RECEIVED REPORT FROM ER NURSE, CARRIE FOR PT TO BE ADMITTED FOR SEPSIS AND ALTERED MENTAL STATUS, UNDER THE CARE OF DR. CAMEJO. AWAITING FOR PT'S ARRIVAL.
[2016-12-14] MEDS ORDERED: IV SET PRIMARY PUMP SET 1 EA INFUS.SET MC ONE ×3 (10:04→10:37)
--- NOTE | 2016-12-14 10:09 | NUR ---
REPORT GIVEN TO GEE CINTRON FOR KATHERINE
[2016-12-14 10:30] VITALS: BP 76/53
--- NOTE | 2016-12-14 10:30 | NUR ---
TELE/JANITORIAL CLEANER TO TELE - 327#1 PT ARRIVED VIA GURNEY FROM ER ACCOMPANIED BY ER NURSE CARRIE. PT ALERT WITH NOTED CONFUSION. DENIES PAIN. NO ACUTE RESPIRATORY DISTRESS NOTED. ARRIVED WITH ON GOING IV INFUSION OF MERREM. IV SITES PATENT WITH NO S/S OF INFECTION. PLACED ON 2L O2 VIA N/C PT NOTED WITH WHEEZING AND RHONCHI LUNG SOUNDS THROUGHOUT. ON TELE WITH SINUS RHYTHM, WITH FIRST DEGREE BLOCK, HR 79. PT ADMITTED FOR SEPSIS AND ALTERED MENTAL STATUS UNDER THE CARE OF DR. CAMEJO. AWAITING FOR ADMITTING ORDERS. CL WITHIN REACHED AND SAFETY MAINTAINED.
[2016-12-14] MEDS ORDERED: IV NS 0.9% 250 ML IV ONE (10:37)
[2016-12-14] MEDS ORDERED: SECONDARY IV SET 1 EA INFUS.SET MC ONE ×2 (10:37→21:39)
[2016-12-14 10:45] VITALS: BP 76/53
[2016-12-14] MEDS ORDERED: FEE PK DOSING 1 MIN EA MC ONE (11:44)
[2016-12-14] MEDS ORDERED: MORPHINE SULFATE INJ 2 MG/ML DISP.SYRIN IV PRN (12:00)
[2016-12-14] MEDS ORDERED: ONDANSETRON HCL/PF 4 MG/2 ML VIAL IVP PRN (12:00)
[2016-12-14] MEDS ORDERED: ACETAMINOPHEN 325 MG TABLET PO PRN ×2 (12:00→12:30)
[2016-12-14] MEDS ORDERED: IPRATROPIUM NEB FS 0.5 MG/2.5 ML AMPUL.NEB ONE (12:24)
[2016-12-14] MEDS: IPRATROPIUM NEB FS 0.5 MG/2.5 ML AMPUL.NEB IH SCH ×4 (12:29→19:57)
[2016-12-14] MEDS: ALBUTEROL FS 2.5 MG/3 ML VIAL.NEB NEB SCH ×4 (12:29→19:57)
[2016-12-14] MEDS ORDERED: TRAMADOL HCL 50 MG TABLET PO PRN (12:30)
[2016-12-14] MEDS ORDERED: MAGNESIUM HYDROXIDE 30 ML UDC PO PRN (12:30)
[2016-12-14] MEDS ORDERED: PROCHLORPERAZINE MALEATE 10 MG TABLET PO PRN (12:30)
[2016-12-14] MEDS ORDERED: ALBUTEROL SULFATE 8 GM HFA.AER.AD IH PRN (12:30)
[2016-12-14] MEDS ORDERED: BISACODYL SUPP (10 MG) 10 MG/SUPP.RECT SUPP.RECT RC PRN (12:30)
[2016-12-14] MEDS ORDERED: NA PHOS,M-B/NA PHOS,DI-BA 1 EA ENEMA RC PRN (12:30)
[2016-12-14] MEDS: ZOSYN IVPB 3.375 G in IV D5W 50ml IV SCH ×2 (12:35→17:22)
[2016-12-14] MEDS: IV NS 0.9% 1,000 ML IV PRN (12:35)
[2016-12-14] MEDS: ENOXAPARIN SODIUM 30 MG/0.3 ML DISP.SYRIN SQ SCH (12:36)
[2016-12-14] MEDS: PROSOURCE / PROSTAT (PYXIS) 30 ML UDC PO SCH (12:37)
[2016-12-14] MEDS: PYRIDOXINE HCL 50 MG TABLET PO SCH (12:37)
[2016-12-14 16:00] VITALS: BP 71/47
[2016-12-14] MEDS ORDERED: Z GUARD REMEDY 2 OZ OINT TP PRN (16:00)
--- NOTE | 2016-12-14 17:56 | NUR ---
RT NOTE: RT CALLED TO PATIENT'S ROOM DUE TO PATIENT STATING HE IS CHOKING. UPON ARRIVAL PATIENT WAS PERSISTENTLY COUGHING AND IN SOME DISTRESS. HE IS SITTING UP ON 3LPM NASAL CANNULA SATURATING 96%. TREATMENT WAS GIVEN AND PATIENT'S COUGH SUBSIDED. RESPIRATIONS ARE NOW EVEN AND UNLABORED WITH INTERMITTENT COUGHING. PATIENT STATES HE FEELS BETTER. PATIENT HAS A SMALL OPEN STOMA THAT WAS CLEANED AND COVERED. NURSE AWARE. WILL CONTINUE TO MONITOR.
--- NOTE | 2016-12-14 19:30 | NUR ---
RN NOTES RECEIVED PT. AWAKE ON BED, A/OX3, SR WITH 1ST DEGREE AV BLOCK, HR-82, DENIES PAIN, NO SOB, CALL LIGHT WITHIN REACH, PUT PT ON COMFORTABLE, POSITION, SIDERAILS UPX2 CONTINUE TO MONITOR
--- NOTE | 2016-12-14 19:43 | NUR ---
TELE/RN AM SHIFT END NOTES NO ACUTE CHANGE OF CONDITION NOTED WITH PT SINCE HE WAS ADMITTED EARLIER THIS MORNING. NEEDS MET. PT ENDORSED TO PM NURSE TO CONTINUE CARE. ALSO ENDORSED PT FOR ASPIRATION PRECAUTION AND TO FOLLOW-UP WITH DR. CAMEJO REGARDING INCREASING IV FLUIDS TO 125CC/HR TO COMPLY WITH SEPSIS PROTOCOL, PT WAS NOTED WITH WHEEZING AND RHONCHI LUNG SOUNDS THROUGHOUT. CL WITHIN REACHED AND SAFETY MAINTAINED.
[2016-12-14 20:00] VITALS: BP 95/54
[2016-12-14] MEDS: VANCOMYCIN 0.75 GM in IV D5W 250 ML IV SCH (21:47)
[2016-12-14] MEDS: TEMAZEPAM 15 MG CAPSULE PO SCH (21:48)
[2016-12-15] VITALS (8 sets, daily range): BP systolic 94–128; BP diastolic 55–72
[2016-12-15] MEDS ORDERED: SECONDARY IV SET 1 EA INFUS.SET MC ONE (00:08)
[2016-12-15] MEDS: ZOSYN IVPB 3.375 G in IV D5W 50ml IV SCH ×5 (00:18→23:12)
[2016-12-15] MEDS: IPRATROPIUM NEB FS 0.5 MG/2.5 ML AMPUL.NEB IH SCH ×4 (02:15→21:29)
[2016-12-15] MEDS: ALBUTEROL FS 2.5 MG/3 ML VIAL.NEB NEB SCH ×4 (02:16→21:29)
[2016-12-15] MEDS: IPRATROPIUM NEB FS 0.5 MG/2.5 ML AMPUL.NEB IH PRN (05:45)
[2016-12-15] MEDS: ALBUTEROL FS 2.5 MG/3 ML VIAL.NEB NEB PRN (05:45)
[2016-12-15] MEDS: IV NS 0.9% 1,000 ML IV PRN (06:10)
--- NOTE | 2016-12-15 06:47 | NUR ---
RN NOTES SLEEPING BUT AROUSABLE, DENIES PAIN, NO SOB, MORNING CARE RENDERED, , PT. NEEDS ATTENDED
[2016-12-15 07:07] LABS: HEMOGLOBIN 13.9 g/dL (13.5-17.5); WHITE BLOOD COUNT (AUTO) 10.9 K/uL (4.3-11.0)
[2016-12-15 07:08] LABS: HEMATOCRIT 42 % (39-51); MEAN CORPUSCULAR HEMOGLOBIN 28 PG (26.0-33.0); MEAN CORPUSCULAR HGB CONC 33 g/dl (31.0-36.0); MEAN CORPUSCULAR VOLUME 86 fL (80-96); RDW COEFFICIENT OF VARIATION 14.4 (11.5-15.0)
[2016-12-15 07:09] LABS: BASOPHILS % (AUTO) 0.9 % (0.0-2.0); EOSINOPHILS # (AUTO) 0.6 /CMM (0.0-0.7); EOSINOPHILS % (AUTO) 5.6 % (0.0-6.0); LYMPHOCYTES # (AUTO) 1.6 /CMM (0.8-4.8); LYMPHOCYTES % (AUTO) 14.5 % (20.0-44.0); MONOCYTES # (AUTO) 0.9 /CMM (0.1-1.30); MONOCYTES % (AUTO) 8.6 % (2.0-12.0); NEUTROPHILS # (AUTO) 7.7 /CMM (1.8-8.9); NEUTROPHILS % (AUTO) 70.4 % (43.0-81.0)
[2016-12-15 07:10] LABS: BASOPHILS # (AUTO) 0.1 /CMM (0.0-0.2)
[2016-12-15] MEDS ORDERED: PANTOPRAZOLE 40 MG TABLET.DR PO SCH (07:30)
--- NOTE | 2016-12-15 07:30 | NUR ---
MUSEUM OR ZOO DIRECTOR AM NOTES PT IN BED, AAO X 2, CONFUSED AT TIMES, ON 3L O2 VIA NC. NOT IN ANY DISTRESS,NO SOB, RESPIRATION UNLABORED. STOMA SITE WITH CDI DRESSING, OCCASIONAL WHEEZING, TELEMETRY READS SR 1ST DEG AVB HR 75, DENIES CHEST PAIN, C/O BURNING SENSATION ON URINATION. REQUESTING FOR PERALES CATHETER, INFORMED HIM THAT WE WILL NOTIFY MD. NS AT 75 ML/HR INFUSING WELL TO RT AC 20G, SITE CLEAR, LEFT HAND 20 G, INFILTRATED, WILL REMOVE. 2 GM NA DIET, SEE NURSING FLOWSHEET FOR SKIN ISSUES, BED REST FOR NOW, WILL TURN AND REPOSITION, CALL LIGHT WITHIN REACH, BED LOW LOCKED, SR UP X2, WILL CONT TO MONITOR.
[2016-12-15 08:27] LABS: PLATELET COUNT (AUTO) 180 /CMM (150-450)
[2016-12-15] MEDS: HYDROCODONE/APAP 5/325MG 1 EACH TABLET PO SCH (08:45)
[2016-12-15] MEDS: PYRIDOXINE HCL 50 MG TABLET PO SCH (08:45)
[2016-12-15] MEDS: PROSOURCE / PROSTAT (PYXIS) 30 ML UDC PO SCH (08:45)
[2016-12-15] MEDS: ENOXAPARIN SODIUM 30 MG/0.3 ML DISP.SYRIN SQ SCH (08:46)
[2016-12-15] MEDS: AMIODARONE HCL 200 MG TABLET PO SCH (08:46)
[2016-12-15 08:50] LABS: CALCIUM, SERUM 8.3 mg/dL (8.5-10.1); CARBON DIOXIDE 28 mmol/L (21-32); CHLORIDE 105 mmol/L (98-107); CREATININE 0.8 mg/dL (0.6-1.3); GLUCOSE 94 mg/dL (74-106); MAGNESIUM 1.7 mg/dL (1.8-2.4); PHOSPHORUS 2.7 mg/dL (2.5-4.9); POTASSIUM 3.5 mmol/L (3.5-5.1); SODIUM SERUM 138 mmol/L (136-145); UREA NITROGEN, BLOOD 10 mg/dL (7-18)
[2016-12-15] MEDS: VANCOMYCIN 0.75 GM in IV D5W 250 ML IV SCH ×2 (09:03→21:39)
--- NOTE | 2016-12-15 09:30 | NUR ---
MS RN NOTES ADMINISTERED DUE MEDS. SEEN BY RAFAELA DEVRIES TO DE TELEMETRY. STARTED VANCO IV EARLIER.
--- NOTE | 2016-12-15 10:30 | NUR ---
MS RN NOTES SEEN BY DR. CAMEJO EARLIER, PER MD CK PERALES FOR NOW.
[2016-12-15] MEDS ORDERED: IV SET PRIMARY PUMP SET 1 EA INFUS.SET MC ONE (11:18)
[2016-12-15] MEDS: Magnesium 1GM/D5W 100ML PREMIX 100 ML IV SCH ×2 (11:46→13:06)
--- NOTE | 2016-12-15 11:46 | NUR ---
MS RN NOTES STARTED ZOSYN IV STARTED MAGNESIUM IV BAG #1.
--- NOTE | 2016-12-15 13:06 | NUR ---
MS RN NOTES STARTED MAGNESIUM IV BAG #2
[2016-12-15] MEDS: LACTOBACILLUS RHAMNOSUS GG 1 EACH CAP.SPRINK PO SCH (16:30)
[2016-12-15] MEDS: DIGOXIN 0.125 MG TABLET PO SCH (16:30)
--- NOTE | 2016-12-15 18:58 | NUR ---
MS RN CLOSING NOTES PT IN BED, RESTING, AAO X 2, CONFUSED AT TIMES, ON 3L O2 VIA NC. NOT IN ANY DISTRESS,NO SOB, RESPIRATION UNLABORED. STOMA SITE WITH CDI DRESSING, OCCASIONAL WHEEZING, DENIES ANY PAIN/DISCOMFORT. STILL C/O BURNING SENSATION ON URINATION. NS AT 75 ML/HR INFUSING WELL TO LT AC 22G, SITE CLEAR, RT AC 20 G,FLUSHES WELL, SITE CLEAR. 2 GM NA DIET, BED REST FOR NOW, ASSISTED WITH TURNING AND REPOSITIONING Q 2 HOURS, PM CARE DONE, INTERMITTENT SUCTIONING AND BREATHING TREATMENT RENDERED. ALL NEEDS MET. CALL LIGHT WITHIN REACH, BED LOW LOCKED, SR UP X2, WILL ENDORSE TO NEXT SHIFT FOR KATHERINE.
--- NOTE | 2016-12-15 19:00 | NUR ---
MS RN OPENING NOTES: RECEIVED PT IN BED AWAKE AND IS ON 3LPM VIA NC. NO SIGNS OR SYMPTOMS OF DISTRESS NOTED AT THIS TIME. CALL LIGHT WITHIN PT'S REACH. BED KEPT IN LOCKED, LOWEST POSITION, AND SIDE RAILS X 2 UP. PT IS A/OX2-3. PT KEPT COMFORTABLE. PT IS BEING INFUSED WITH IV 0.9$ NS 1,000ML AT 75ML/HR. WILL CONTINUE TO MONITOR PT.
--- NOTE | 2016-12-15 21:48 | NUR ---
MS RN NOTES: PT REQUESTED FOR HIS RESTORIL TO BE GIVEN CLOSER TO MIDNIGHT.
[2016-12-16] MEDS: TEMAZEPAM 15 MG CAPSULE PO SCH (00:15)
[2016-12-16] MEDS: IV NS 0.9% 1,000 ML IV PRN (01:51)
[2016-12-16] MEDS: ZOSYN IVPB 3.375 G in IV D5W 50ml IV SCH ×4 (05:01→23:47)
[2016-12-16] MEDS: IPRATROPIUM NEB FS 0.5 MG/2.5 ML AMPUL.NEB IH PRN (06:07)
[2016-12-16] MEDS: ALBUTEROL FS 2.5 MG/3 ML VIAL.NEB NEB PRN (06:07)
--- NOTE | 2016-12-16 06:07 | NUR ---
MS RN NOTES: OFFERED PT FOR BED/SPONGE BATH. PT REFUSED AT THIS TIME AND WOULD JUST LIKE HIS BREATHING TREATMENT AND A WARM BLANKET. OLD STOMA TRACH SITE WAS CLEANED AND CHANGED. WILL CONTINUE TO MONITOR PT.
[2016-12-16 07:13] LABS: BASOPHILS # (AUTO) 0.1 /CMM (0.0-0.2); BASOPHILS % (AUTO) 0.7 % (0.0-2.0); EOSINOPHILS # (AUTO) 0.9 /CMM (0.0-0.7); HEMATOCRIT 37 % (39-51); HEMOGLOBIN 12.6 g/dL (13.5-17.5); LYMPHOCYTES # (AUTO) 1.1 /CMM (0.8-4.8); LYMPHOCYTES % (AUTO) 14.5 % (20.0-44.0); MEAN CORPUSCULAR HEMOGLOBIN 29 PG (26.0-33.0); MEAN CORPUSCULAR HGB CONC 34 g/dl (31.0-36.0); MEAN CORPUSCULAR VOLUME 85 fL (80-96); MONOCYTES # (AUTO) 0.7 /CMM (0.1-1.30); MONOCYTES % (AUTO) 9.6 % (2.0-12.0); NEUTROPHILS # (AUTO) 4.9 /CMM (1.8-8.9); NEUTROPHILS % (AUTO) 63.2 % (43.0-81.0); PLATELET COUNT (AUTO) 220 /CMM (150-450); RDW COEFFICIENT OF VARIATION 14.7 (11.5-15.0); RED BLOOD CELL COUNT(AUTO) 4.41 MIL/uL (4.5-6.0); WHITE BLOOD COUNT (AUTO) 7.7 K/uL (4.3-11.0)
--- NOTE | 2016-12-16 07:16 | NUR ---
MS RN CLOSING NOTES: ALL NEEDS WERE ATTENDED AND ANTICIPATED FOR. PT IS ON 3LPM VIA NC AND IS TOLERATING WELL. URINAL OUTPUT FOR ENTIRE SHIFT WAS 900ML. PT HAS IV ON L AC #22G AND IS BEING INFUSED WITH NS 1,000ML AT 75ML/HR. PT ALSO HAS IV ON R AC #20G AND IS PATENT AND INTACT. CALL LIGHT WITHIN PT'S REACH. BED KEPT IN LOCKED, LOWEST POSITION, AND SIDE RAILS X 2 UP. NO S/S OF DISTRESS NOTED AT THIS TIME. ENDORSED TO AM NURSE FOR KATHERINE.
[2016-12-16 07:29] LABS: CALCIUM, SERUM 7.8 mg/dL (8.5-10.1); CARBON DIOXIDE 30 mmol/L (21-32); CHLORIDE 107 mmol/L (98-107); CREATININE 0.8 mg/dL (0.6-1.3); GLUCOSE 88 mg/dL (74-106); POTASSIUM 3.5 mmol/L (3.5-5.1); SODIUM SERUM 141 mmol/L (136-145); UREA NITROGEN, BLOOD 9 mg/dL (7-18)
[2016-12-16] MEDS: ALBUTEROL FS 2.5 MG/3 ML VIAL.NEB NEB SCH ×4 (07:35→20:00)
[2016-12-16] MEDS: IPRATROPIUM NEB FS 0.5 MG/2.5 ML AMPUL.NEB IH SCH ×4 (07:35→20:00)
[2016-12-16 08:00] VITALS: BP 104/70
[2016-12-16] MEDS: AMIODARONE HCL 200 MG TABLET PO SCH (08:23)
[2016-12-16] MEDS: DIGOXIN 0.125 MG TABLET PO SCH (08:24)
[2016-12-16] MEDS: LACTOBACILLUS RHAMNOSUS GG 1 EACH CAP.SPRINK PO SCH ×2 (08:51→17:14)
[2016-12-16] MEDS: PROSOURCE / PROSTAT (PYXIS) 30 ML UDC PO SCH (08:51)
[2016-12-16] MEDS: HYDROCODONE/APAP 5/325MG 1 EACH TABLET PO SCH (08:51)
[2016-12-16] MEDS: PANTOPRAZOLE 40 MG TABLET.DR PO SCH (08:52)
[2016-12-16] MEDS: PYRIDOXINE HCL 50 MG TABLET PO SCH (08:52)
[2016-12-16] MEDS: ENOXAPARIN SODIUM 30 MG/0.3 ML DISP.SYRIN SQ SCH (08:52)
--- NOTE | 2016-12-16 09:54 | NUR ---
WOUND CARE CONSULT: PT PRESENTS WITH RASH TO BUTTOCKS AND PERINEUM, PRESENT ON ADMISSION WITH IRRITATED SKIN. RECOMMENDATIONS MADE AND DISCUSSED WITH NURSING STAFF. SKIN TO BE KEPT CLEAN AND DRY. PT SOMETIMES INCONTINENT OF URINE. PT ON WALDO ISOFLEX LOW AIRLOSS BED. ALL SKIN PROTECTION RECOMMENDATIONS DISCUSSED WITH NURSING STAFF. TINY SCAB NOTED TO TOP TO LEFT EAR. PT STATES WAS PRESENT ON ADMISSION. NO DRAINAGE NOTED. IN AGREEMENT WITH PLAN OF CARE. Addendum: 12/16/16 at 0956 by BERENICE SILVERMANU Amended: Links added. Addendum: 12/16/16 at 1009 by BERENICE SHAW WNARCHIEU TRACH STOMA NOTED. DEFER TO .
[2016-12-16 10:11] LABS: BAND % (MANUAL) 1 % (0.0-5.0); EOSINOPHILS % (MANUAL) 12 % (0-4); LYMPHOCYTES % (MANUAL) 5 % (16-48); MONOCYTES % (MANUAL) 12 % (0-11.0); NEUTROPHILS % (MANUAL) 70 (42-76)
[2016-12-16] MEDS: VANCOMYCIN 0.75 GM in IV D5W 250 ML IV SCH ×2 (10:25→21:01)
--- NOTE | 2016-12-16 11:00 | NUR ---
m/s product management specialist: notes condom cath provided as ordered. instructed to call for assistance. will continue to monitor.
--- NOTE | 2016-12-16 14:00 | NUR ---
m/s landscape horticulture instructor: notes in bed awake, resting comfortable in bed. no c/o pain ordered. instructed to call for assistance. will continue to monitor.
[2016-12-16] MEDS: CLOTRIMAZOLE/BETAMETASONE DIPROPIONATE 15 GM TUBE TP SCH ×2 (14:26→17:15)
[2016-12-16 16:00] VITALS: BP 118/71
--- NOTE | 2016-12-16 16:10 | NUR ---
m/s outreach professional: notes pt asked for condom cath to be removed completely and just want urinal. condom cath removed per pt's request. urinal provided and instructed to call for assistance. will continue to monitor.
[2016-12-16] MEDS ORDERED: BOOST PLUS FOOD-CHOCLATE 237 ML BOX PO SCH (17:00)
--- NOTE | 2016-12-16 17:30 | NUR ---
m/s director of medical services: notes dinner served. hob elevated. no c/o pain or any discomfort. instructed to call for assistance. will continue to monitor.
--- NOTE | 2016-12-16 19:15 | NUR ---
MS RN OPENING NOTES: RECEIVED PT IN BED AWAKE, A/ O X3. NO SIGNS OR SYMPTOMS OF DISTRESS NOTED AT THIS TIME. HOB UP, CALL LIGHT WITHIN PT'S REACH. BED KEPT IN LOCKED, LOWEST POSITION, AND SIDE RAILS X 2UP. PT HAS IV ON L FOREARM #22G. PT IS ON 3LPM VIA NASAL CANNULA AND IS TOLERATING WELL. WILL CONTINUE TO MONITOR PT.
[2016-12-16 20:00] VITALS: BP_SYST 123; BP_DIAS 60; BP_DIAS 72
[2016-12-16] MEDS: MUPIROCIN OINT 2% 22 GM TUBE SCH (20:34)
--- NOTE | 2016-12-16 20:45 | NUR ---
MS RN NOTES: PT REQUESTED FOR HIS RESTORIL TO BE GIVEN AT MIDNIGHT INSTEAD OF THE SCHEDULED TIME.
[2016-12-17] MEDS: TEMAZEPAM 15 MG CAPSULE PO SCH ×2 (01:09→23:56)
--- NOTE | 2016-12-17 01:09 | NUR ---
MS RN NOTES: PT REQUESTED FOR HIS RESTORIL AT THIS TIME. WILL CONTINUE TO MONITOR PT.
[2016-12-17] MEDS: ALBUTEROL FS 2.5 MG/3 ML VIAL.NEB NEB SCH ×4 (01:50→20:21)
[2016-12-17] MEDS: IPRATROPIUM NEB FS 0.5 MG/2.5 ML AMPUL.NEB IH SCH ×4 (01:50→20:21)
[2016-12-17] MEDS: ZOSYN IVPB 3.375 G in IV D5W 50ml IV SCH ×4 (05:04→23:56)
--- NOTE | 2016-12-17 07:30 | NUR ---
MS RN CLOSING NOTES: ALL NEEDS WERE ATTENDED AND ANTICIPATED FOR. NO SIGNS OR SYMPTOMS OF DISTRESS NOTED AT THIS TIME. PT IS ON 2LPM VIA NC AND IS TOLERATING WELL. CALL LIGHT WITHIN PT'S REACH. BED KEPT IN LOCKED, LOWEST POSITION, AND SIDE RAILS X 2 UP. ENDORSED TO AM NURSE FOR KATHERINE.
--- NOTE | 2016-12-17 07:30 | NUR ---
RN NOTES: RECEIVED PT IN BED AWAKE, A/ O X3. ON O2@3LPM VIA NC, NO SIGNS OR SYMPTOMS OF DISTRESS NOTED AT THIS TIME. WAITING FOR RT FOR BREATHING TREATMENT. HOB ELEVATED, PT HAS IV ON L FOREARM #22G, NOTED WITH EDEMA, OFFERED TO REINSERT IV ON R ARM, PT STRONGLY REFUSED. ELEVATED LEFT ARM. DENIES PAIN AT THIS TIME. URINAL PROVIDED. KEPT COMFORTABLE, SAFETY MAINTAINED, CALL LIGHT WITHIN REACH. WILL CONT TO MONITOR.
[2016-12-17 07:47] LABS: CALCIUM, SERUM 8.3 mg/dL (8.5-10.1); CARBON DIOXIDE 30 mmol/L (21-32); CHLORIDE 106 mmol/L (98-107); CREATININE 0.7 mg/dL (0.6-1.3); GLUCOSE 86 mg/dL (74-106); POTASSIUM 3.5 mmol/L (3.5-5.1); SODIUM SERUM 144 mmol/L (136-145); UREA NITROGEN, BLOOD 12 mg/dL (7-18)
[2016-12-17 08:00] VITALS: BP 95/59
[2016-12-17] MEDS: LACTOSE-FREE FOOD 237 ML LIQUID PO SCH ×2 (08:00→16:36)
[2016-12-17] MEDS: DIGOXIN 0.125 MG TABLET PO SCH (08:37)
[2016-12-17] MEDS: PANTOPRAZOLE 40 MG TABLET.DR PO SCH (08:37)
[2016-12-17] MEDS: PYRIDOXINE HCL 50 MG TABLET PO SCH (08:37)
[2016-12-17] MEDS: LACTOBACILLUS RHAMNOSUS GG 1 EACH CAP.SPRINK PO SCH ×2 (08:37→16:37)
[2016-12-17] MEDS: HYDROCODONE/APAP 5/325MG 1 EACH TABLET PO SCH (08:37)
[2016-12-17] MEDS: MUPIROCIN OINT 2% 22 GM TUBE SCH ×2 (08:38→21:49)
[2016-12-17] MEDS: CLOTRIMAZOLE/BETAMETASONE DIPROPIONATE 15 GM TUBE TP SCH ×2 (08:39→16:36)
[2016-12-17] MEDS: ENOXAPARIN SODIUM 30 MG/0.3 ML DISP.SYRIN SQ SCH (08:39)
[2016-12-17] MEDS: PROSOURCE / PROSTAT (PYXIS) 30 ML UDC PO SCH (08:41)
[2016-12-17] MEDS: VANCOMYCIN 0.75 GM in IV D5W 250 ML IV SCH ×2 (08:42→21:43)
[2016-12-17] MEDS: AMIODARONE HCL 200 MG TABLET PO SCH (09:00)
[2016-12-17 16:00] VITALS: BP 96/51
[2016-12-17 16:14] VITALS: BP 96/57
--- NOTE | 2016-12-17 17:55 | NUR ---
RN NOTES SPOKE WITH DR CAMEJO, REPORTED PT LEFT ARM SWOLLEN, PT REFUSED IV INSERTION ON R ARM, PER MD ITS OKAY FOR NOW, HE WILL SWITCH MEDS TO PO
[2016-12-17 20:00] VITALS: BP 101/80
--- NOTE | 2016-12-17 20:00 | NUR ---
MS/RN RECEIVE PATIENT AWAKE, ALERT, ORIENTED, COMFORTABLE, NO C/O PAIN, NO DISTRESS NOTED, CALL LIGHT IN REACH. WILL MONITOR.
--- NOTE | 2016-12-18 01:12 | NUR ---
MS/RN PATIENT SLEEPING AT THIS TIME, AROUSABLE, APPEAR COMFORTABLE, NO SIGNS OF DISTRESS NOTED, CALL LIGHT IN REACH. WILL CONTINUE TO MONITOR.
[2016-12-18] MEDS: IPRATROPIUM NEB FS 0.5 MG/2.5 ML AMPUL.NEB IH SCH ×3 (01:26→14:08)
[2016-12-18] MEDS: ALBUTEROL FS 2.5 MG/3 ML VIAL.NEB NEB SCH ×3 (01:26→14:08)
[2016-12-18] MEDS: ZOSYN IVPB 3.375 G in IV D5W 50ml IV SCH ×2 (05:51→12:00)
--- NOTE | 2016-12-18 06:12 | NUR ---
MS/RN PATIENT AWAKE, ALERT, ORIENTED, COMFORTABLE, ALL NEEDS ATTENDED AT THIS TIME. WILL CONTINUE TO MONITOR.
--- NOTE | 2016-12-18 07:15 | NUR ---
RN INITIAL NOTE PATIENT RECEIVED IN BED. AWAKE, ALERT AND ORIENTED, ABLE TO MAKE NEEDS KNOWN. NO S/S OF PAIN OR DISCOMFORT. RESPIRATIONS ARE EVEN AND UNLABORED. NO S/S OF RESPIRATORY DISTRESS OR SOB. SATING WELL ON 2L NASAL CANULA. SKIN IS WARM AND DRY TO TOUCH. IV SITE FLUSHED AND PATENT. SAFETY PRECAUTIONS IN PLACE, BED IN LOCKED, LOW POSITION WITH TWO SIDE RAILS UP. CALL LIGHT AND BELONGINGS WITHIN EASY REACH. ISOLATION PRECAUTIONS OBSERVED. WILL CONTINUE TO MONITOR.
[2016-12-18 08:00] VITALS: BP 108/55
[2016-12-18] MEDS: LACTOBACILLUS RHAMNOSUS GG 1 EACH CAP.SPRINK PO SCH (08:29)
[2016-12-18] MEDS: PANTOPRAZOLE 40 MG TABLET.DR PO SCH (08:30)
[2016-12-18] MEDS: DIGOXIN 0.125 MG TABLET PO SCH (08:30)
[2016-12-18] MEDS: PYRIDOXINE HCL 50 MG TABLET PO SCH (08:30)
[2016-12-18] MEDS: HYDROCODONE/APAP 5/325MG 1 EACH TABLET PO SCH (08:30)
[2016-12-18 08:31] VITALS: BP 108/55
[2016-12-18] MEDS: AMIODARONE HCL 200 MG TABLET PO SCH (08:31)
[2016-12-18] MEDS: ENOXAPARIN SODIUM 30 MG/0.3 ML DISP.SYRIN SQ SCH (08:37)
[2016-12-18] MEDS: CLOTRIMAZOLE/BETAMETASONE DIPROPIONATE 15 GM TUBE TP SCH (08:37)
[2016-12-18] MEDS: MUPIROCIN OINT 2% 22 GM TUBE SCH (08:38)
[2016-12-18] MEDS: LACTOSE-FREE FOOD 237 ML LIQUID PO SCH (08:38)
[2016-12-18] MEDS: PROSOURCE / PROSTAT (PYXIS) 30 ML UDC PO SCH (09:01)
[2016-12-18] MEDS: VANCOMYCIN 0.75 GM in IV D5W 250 ML IV SCH (09:03)
[2016-12-18 09:18] LABS: CALCIUM, SERUM 8.6 mg/dL (8.5-10.1); CARBON DIOXIDE 31 mmol/L (21-32); CHLORIDE 103 mmol/L (98-107); CREATININE 0.7 mg/dL (0.6-1.3); GLUCOSE 90 mg/dL (74-106); POTASSIUM 3.7 mmol/L (3.5-5.1); SODIUM SERUM 139 mmol/L (136-145); UREA NITROGEN, BLOOD 9 mg/dL (7-18)
--- NOTE | 2016-12-18 15:00 | NUR ---
RN CLOSING NOTE PATIENT DISCHARGED TO [facility], REPORT CALLED TO MIRA. PATIENT G0ING TO ROOM 60A. EMT INFORMED. IV SITE DISCONTINUED. PICTURES OF WOUNDS TAKEN AND PLACED IN CHART. PAPERWORK REVIEWED AND SIGNED WITH PATIENT.
== END 2016-12-18 15:00 | DRG 871 ==
LOC: ER 08:32 → TELE 09:51 → MED 12-15 08:45
PROVIDERS: ADMIT Legal Medicine; ATTEND Legal Medicine
DX: A41.9 Sepsis, unspecified organism (principal); J18.9 Pneumonia, unspecified organism; J44.0 Chronic obstructive pulmonary disease with (acute) lower respiratory infection; J44.1 Chronic obstructive pulmonary disease with (acute) exacerbation; E11.22 Type 2 diabetes mellitus with diabetic chronic kidney disease; E11.65 Type 2 diabetes mellitus with hyperglycemia; I12.9 Hypertensive chronic kidney disease with stage 1 through stage 4 chronic kidney disease, or unspecified chronic kidney disease; N18.9 Chronic kidney disease, unspecified; I48.91 Unspecified atrial fibrillation; K59.00 Constipation, unspecified; Z86.73 Personal history of transient ischemic attack (TIA), and cerebral infarction without residual deficits; G89.4 Chronic pain syndrome; Z79.899 Other long term (current) drug therapy; Z79.51 Long term (current) use of inhaled steroids; H26.9 Unspecified cataract
CPT/HCPCS: 36415; 70450-TC; 71010-TC; 76705-TC; 80048-TC; 80076-TC; 80162-TC; 80202-TC; 81000-TC; 82140-TC; 83605-TC; 83735-TC; 84100-TC; 84443-TC; 84484-TC; 85025-TC; 85730-TC; 87040-TC; 87081-TC; 87086-TC; 94799-TC; A4349; A4606; A6402; G0480; J1650; J2185; J2543; J3370; J3475; J7030; J7050; J7060; Q0164; Z7610